=== PATIENT | male | born 1955 | race African-American/Black ===

== ENCOUNTER 2017-09-07 13:33 | Emergency (ER) | payer OTHER ==
[2017-09-07 14:01] VITALS: TEMP 98; BMI 22.6
[2017-09-07 16:12] LABS: ALBUMIN 3.4 g/dl (3.4-5.0); ALK PHOS 87 U/L (45-117); ANION GAP 12 (8-16); BILIRUBIN,TOTAL 0.2 mg/dL (0.2-1.0); BLOOD UREA NITROGEN 25 mg/dL (7-18); CALCIUM 7.9 mg/dL (8.5-10.1); CHLORIDE 98 mmol/L (98-107); CO2 27 mmol/L (21-32); CREATININE 5.7 mg/dL (0.7-1.3); GLUCOSE,RANDOM 74 mg/dL (74-106); POTASSIUM 4.5 mmol/L (3.5-5.1); SGOT/AST 13 U/L (15-37); SGPT/ALT 22 U/L (12-78); SODIUM 137 mmol/L (136-145); TOT PROT 7.8 g/dl (6.4-8.2)
[2017-09-07 16:16] LABS: INR 1.03 (0.82-1.09); PROTHROMBIN TIME (PATIENT) 11.6 SEC (9.98-11.88)
[2017-09-07 16:19] LABS: ACTIVATED PTT 30.1 SECONDS (26.9-34.4)
[2017-09-07 16:25] LABS: BASO % 1.2 % (0-2.0); LYMPH % 22.1 % (8-40); MCH 32.6 pg (25.7-33.7); MCHC 33.4 g/dl (32.0-35.9); MEAN CELL VOLUME 97.4 fl (80-96); MEAN PLT VOLUME 9.1 fl (7.5-11.1); MONO % 12.7 % (3.8-10.2); PLATELET COUNT 256 K/MM3 (134-434); RBC 3.08 M/mm3 (4.00-5.60); RDW 15.8 % (11.9-15.9); WHITE BLOOD COUNT 3.4 K/mm3 (4.0-10.0)
--- NOTE | 2017-09-07 18:10 | PDOC ---
History of Present Illness - General Chief Complaint: AV shunt bleeding Stated Complaint: FISTULA IS BLEEDING Time Seen by Provider: 09/07/17 14:04 History Source: Patient Exam Limitations: No Limitations - History of Present Illness Initial Comments: 09/07/17 18:05 This 62-year-old male presents to the emergency room via EMS after having a bleeding episode from his left upper arm fistula. Patient has been having hemodialysis today for end-stage renal disease and when he got home he took the bandage off and found it to be bleeding extensively having him to call 911. Patient had a compression dressing on to the left upper arm fistula which seems to a foldable bleeding at this time. He is awake alert and oriented and asymptomatic from any kind of excessive blood loss. Past medical history is HIV being undetectable per the patient and is followed in [facility]. He's also end-stage renal disease as well as hemodialysis. His primary AV fistula surgeon is Dr. Abraham He was busted go see him tomorrow for what they thought was clotting in the fistula. Occurred: reports: just prior to arrival Past History - Past Medical History Allergies/Adverse Reactions: Allergies Allergy/AdvReac Type Severity Reaction Status Date / Time No Known Allergies Allergy Verified 09/07/17 13:36 Home Medications: Ambulatory Orders Oxycodone HCl/Acetaminophen [Percocet 10-325 mg Tablet] 1 - 2 tab PO Q6H PRN 01/27 Pravastatin Sodium [Pravachol -] 20 mg PO HS 09/20/14 Ritonavir [Norvir] 100 mg PO AM 09/20/14 Ascorbic Acid [Vitamin C -] 500 mg PO DAILY 09/28/14 Aspirin [ASA -] 81 mg PO DAILY 09/28/14 Calcium Carbonate/Vitamin D3 [Oyster Shell 500-Vit D3 200 Tb] 1 each PO BID Multivitamins [Multivit ([facility] Formulary)] 1 tab PO DAILY 09/28/14 Acetaminophen [Tylenol .Regular Strength -] 650 mg PO Q4H PRN #0 tablet Albuterol Sulfate Inhaler - [Ventolin HFA Inhaler -] 1 inh PO QID PRN #1 canister 10/25/14 Amlodipine Besylate [Norvasc -] 5 mg PO DAILY #30 tablet 10/25/14 Atazanavir [Reyataz -] 300 mg PO DAILY@0800 #30 capsule 10/25/14 Atorvastatin Ca [Lipitor] 10 mg PO HS tablet 10/25/14 Carvedilol [Coreg] 6.25 mg PO BID #60 tablet 10/25/14 Clopidogrel Bisulfate [Plavix -] 75 mg PO DAILY tablet 10/25/14 Fluticasone Propionate [Flovent Hfa] 13 gm IH DAILY #1 aer.w.adap 10/25/14 Furosemide [Lasix -] 40 mg PO DAILY #30 tablet 10/25/14 Hydrocortisone 2.5% Topical Cr [Anusol-Hc -] 1 applic TP BID tube 10/25/14 Lamivudine Oral Soln [Epivir Oral Solution -] 100 mg PO DAILY@0600 #30 ml Loperamide HCl [Imodium -] 4 mg PO Q6H PRN #0 capsule 10/25/14 Thiamine HCl [Vitamin B1 -] 100 mg PO HS #30 tablet 10/25/14 Zidovudine [Retrovir -] 300 mg PO BID@ #60 tablet 10/25/14 Anemia: No Asthma: No Cancer: No Cardiac Disorders: No CVA: Yes (2007) COPD: Yes CHF: Yes Dementia: No Diabetes: No Dialysis: Yes (Thu) GI Disorders: No Disorders: No HTN: Yes Hypercholesterolemia: Yes Kidney Stones: No Liver Disease: No Seizures: No Thyroid Disease: No - Surgical History Cardiac Surgery: Yes ([facility]) Orthopedic Surgery: Yes (rt. hip replacement 2012) - Reproductive History Testicular Surgery: No - Suicide/Smoking/Psychosocial Hx Smoking History: Current every day smoker Have you smoked in the past 12 months: Yes Number of Cigarettes Smoked Daily: 5 Information on smoking cessation initiated: Yes 'Breaking Loose' booklet given: 09/07/17 Hx Alcohol Use: No Drug/Substance Use Hx: No Substance Use Type: Cocaine Hx Substance Use Treatment: (attended groups at [facility]) Review of Systems - Review of Systems Able to Perform ROS?: Yes Comments:: 09/07/17 18:06 General statement: Ear for bleeding Hematology: Positive history of bleeding but not on anyblood thinners Skin: Neg for lesions, rash, bruising. Left upper arm fistula positive thrill HEENT: Neg symptoms Respiratory: Neg SOB or difficulty in breathing Cardiac: Neg chest pain GI: Neg pain, n/v : Neg problems on voiding MS: Neg for joint pain/stiffness, no edema Neuro: Neg for LOC, weakness, Endocrine: Neg for excess thirst/hunger, cold/heat intolerance, excess sweating Allergies: Neg for allergies *Physical Exam - Vital Signs Last Vital Signs Temp Pulse Resp BP Pulse Ox 98.0 F 80 20 132/91 99 09/07/17 13:36 09/07/17 13:36 09/07/17 13:36 09/07/17 13:36 09/07/17 13:36 - Physical Exam Comments: 09/07/17 18:07 General Appearance: This well appearing 82-year-old male V/S: hemodynamically stable, afebrile Skin: WNL of pt's skin color, no signs of pallor, mottling, cyanosis of a noted left upper arm fistula positive thrill with a compression dressing on and placed bleeding controlled. Head:symmetrical Eyes: EOM's intact, PERRLA Ears: denies pain Nose: patent Throat: lips, teeth, gums, tongue, buccal mucos pink and moist Lungs: Chest symmetry equal. Cap refill <3 seconds. Lung sounds clear Cardiac: PMI at R 4MCL space, pos S1 and S2, regular rate. Abdomen: Soft, round, nontender : Not observed Muscularskeletal: Gait steady, ambulated in to ER, no edema +PMS Neuro: AAOx3, cognitively intact, speech clear and appropriate. ED Treatment Course - LABORATORY CBC & Chemistry Diagram: 09/07/17 15:38 09/07/17 15:38 - ADDITIONAL ORDERS Additional order review: Laboratory Results 09/07/17 09/07/17 15:38 15:38 PT with INR 11.60 INR 1.03 PTT (Actin FS) 30.1 Sodium 137 Potassium 4.5 Chloride 98 Carbon Dioxide 27 Anion Gap 12 BUN 25 H D Creatinine 5.7 H D Creat Clearance w eGFR 10.13 Random Glucose 74 D Calcium 7.9 L Total Bilirubin 0.2 D AST 13 L ALT 22 D Alkaline Phosphatase 87 Total Protein 7.8 Albumin 3.4 09/07/17 15:38 RBC 3.08 L MCV 97.4 H MCHC 33.4 RDW 15.8 MPV 9.1 Neutrophils % 59.0 Lymphocytes % 22.1 Monocytes % 12.7 H Eosinophils % 5.0 H Basophils % 1.2 Medical Decision Making - Medical Decision Making 09/07/17 18:08 initially was seen and examined. Patient found to have a dressing in place that is holding his bleeding back. Patient's bandage was removed after 2 hours and found to have an arterial bleed small coming from the fistula site. At this time pressure is up reapplied and after 2 hours I have called for vascular surgeon to see the patient, Dr. Monroe came and saw the patient and placed in the 3-0 sutures closing off the bleeding. At this time the patient is going to be discharged and told to follow-up with Dr. Abraham tomorrow as scheduled. *DC/Admit/Observation/Transfer Diagnosis at time of Disposition: Hemorrhage of arteriovenous fistula Qualifiers: Encounter type: initial encounter Qualified Code(s): T82.838A - Hemorrhage due to vascular prosthetic devices, implants and grafts, initial encounter - Discharge Dispostion Disposition: HOME Condition at time of disposition: Good Admit: No - Referrals Referrals: Marisela Rubio MD, MD [Primary Care Provider] - - Patient Instructions Additional Instructions: Discharge instructions 1. Please follow up with your primary physician within the next few days and explain that you have been seen here in the Emergency Room. 2. If you experience any worsening of symptoms, please return to the ER 3. Rest, do not pick at the sutures, trying keep the arm straight, please make sure you follow up with Dr. Abraham tomorrow. - Post Discharge Activity
[2017-09-07 18:44] VITALS: BP 169/98; PULSE 72
== END 2017-09-07 18:15 | disposition home or self-care (01) ==
LOC: JER 13:33
PROC: 03Q Upper Arteries, Repair (ICD-10-PCS; principal; 2017-09-07)
DX: T82.838A Hemorrhage due to vascular prosthetic devices, implants and grafts, initial encounter (principal); I25.10 Atherosclerotic heart disease of native coronary artery without angina pectoris; I13.2 Hypertensive heart and chronic kidney disease with heart failure and with stage 5 chronic kidney disease, or end stage renal disease; N18.6 End stage renal disease; I50.89 Other heart failure; F17.210 Nicotine dependence, cigarettes, uncomplicated; Z99.2 Dependence on renal dialysis; Z95.5 Presence of coronary angioplasty implant and graft; J44.9 Chronic obstructive pulmonary disease, unspecified; E78.00 Pure hypercholesterolemia, unspecified; Z86.73 Personal history of transient ischemic attack (TIA), and cerebral infarction without residual deficits; Z96.641 Presence of right artificial hip joint
CPT/HCPCS: 35206; 36415; 80053; 85025; 85610; 85730; 99281-25